=== PATIENT | female | born 1975 | race Two or more races ===

== ENCOUNTER 2024-06-29 06:09 | Emergency (ER) | payer OTHER ==
[~2024-06-29] VITALS: Ht 162.6 cm; Wt 102.1 kg
[2024-06-29] MEDS ORDERED: LAMICTAL150 M1 PO (06:45)
[2024-06-29] MEDS ORDERED: CLONAZEPAM0.5 MG PO (06:46)
[2024-06-29] MEDS ORDERED: ZOLOFT100 MG PO (06:46)
[2024-06-29] MEDS ORDERED: ABILIFY30 MG PO (06:46)
[2024-06-29] MEDS ORDERED: COZAAR25 MG PO (06:46)
[2024-06-29] MEDS ORDERED: ATORVASTATIN CA40 MG PO (06:47)
[2024-06-29] MEDS ORDERED: SYNTHROID100 MCG PO (06:47)
[2024-06-29] MEDS ORDERED: LANTUS SOL100 UNIT/1 SQ (06:48)
[2024-06-29] MEDS ORDERED: JENTADUETO 2.51 EAC2 PO (06:48)
[2024-06-29] MEDS ORDERED: FENOFIBRATE50 MG PO (06:48)
[2024-06-29] MEDS ORDERED: ACETAMINOPHEN 500 MG GEL..CAP PO ONE (08:30)
[2024-06-29] MEDS ORDERED: GUAIFENESIN 200 MG/10 ML BLIST.PACK PO ONE (08:30)
[2024-06-29] MEDS ORDERED: BENZONATATE 100 MG CAPSULE PO SCH (08:30)
[2024-06-29 10:02] LABS: HEMATOCRIT 34.5 % (36.0-45.00); HEMOGLOBIN 11.7 g/dL (12.0-15.00); MEAN CELL VOLUME 81.8 fL (80.00-100.00); MEAN CORPUSCULAR HEMOGLOBIN 27.8 pg (27.00-32.0); PLATELET COUNT 295 K/uL (150-450); RED BLOOD COUNT 4.22 M/uL (4.00-6.00); RED CELL DISTRIBUTION WIDTH 14.5 % (11.5-14.5)
[2024-06-29 11:48] VITALS: BP 122/80; O2SAT 97
[2024-06-30] MEDS ORDERED: PROTONIX40 MG PO (14:50)
[2024-06-30] MEDS ORDERED: [UNRECOGNIZED DRUG - OTHER] (14:51)
[2024-06-30] MEDS ORDERED: IPRATROPIU0.2 MG/1 M IH (18:02)
[2024-06-30] MEDS ORDERED: LEVOFLOXACIN500 MG PO (18:02)
[2024-06-30] MEDS ORDERED: ZYRTEC10 MG PO (18:02)
[2024-06-30] MEDS ORDERED: SALINE NOSE SPR45 ML NASAL (18:02)
[2024-06-30] MEDS ORDERED: XOPENEX CO1.25 MG/0. IH (18:02)
== END 2024-06-29 11:49 | disposition home or self-care (01) ==
LOC: ER 06:12
PROVIDERS: General Practice
DX: R53.81 Other malaise (principal); J06.9 Acute upper respiratory infection, unspecified; Z20.822 Contact with and (suspected) exposure to COVID-19; I10 Essential (primary) hypertension; E11.9 Type 2 diabetes mellitus without complications; Z79.4 Long term (current) use of insulin; Z91.041 Radiographic dye allergy status

== ENCOUNTER 2024-06-30 12:21 | Emergency (ER) | payer OTHER ==
[~2024-06-30] VITALS: Ht 162.6 cm; Wt 102.1 kg
[~2024-06-30 12:21] MED LIST: ABILIFY30 MG PO; ATORVASTATIN CA40 MG PO; CLONAZEPAM0.5 MG PO; COZAAR25 MG PO; FENOFIBRATE50 MG PO; JENTADUETO 2.51 EAC2 PO; LAMICTAL150 M1 PO; LANTUS SOL100 UNIT/1 SQ; SYNTHROID100 MCG PO; ZOLOFT100 MG PO
[2024-06-30 14:46] VITALS: BP 130/83; O2SAT 96
[2024-06-30] MEDS ORDERED: PROTONIX40 MG PO (14:50)
[2024-06-30] MEDS ORDERED: [UNRECOGNIZED DRUG - OTHER] (14:51)
[2024-06-30] MEDS ORDERED: IPRATROPIUM BROMIDE 0.5 MG/2.5 ML AMPUL.NEB IH SCH (15:45)
[2024-06-30] MEDS ORDERED: LEVALBUTEROL HCL 1.25 MG/3 ML SOLUTION IH SCH (15:45)
[2024-06-30] MEDS ORDERED: INSULIN REGULAR, HUMAN 1,000 UNIT/10 ML UNITS SUBCUTANEO ONE (15:45)
[2024-06-30] MEDS ORDERED: CETIRIZINE HCL 5 MG/5 ML ML PO ONE (15:45)
[2024-06-30 16:14] LABS: HEMATOCRIT 34.4 % (36.0-45.00); HEMOGLOBIN 11.4 g/dL (12.0-15.00); MEAN CELL VOLUME 82.1 fL (80.00-100.00); MEAN CORPUSCULAR HEMOGLOBIN 27.3 pg (27.00-32.0); MEAN CORPUSCULAR HGB CONC 33.3 g/dl (32.0-36.0); PLATELET COUNT 307 K/uL (150-450); RED BLOOD COUNT 4.19 M/uL (4.00-6.00); RED CELL DISTRIBUTION WIDTH 14.4 % (11.5-14.5)
[2024-06-30] MEDS ORDERED: LEVOFLOXACIN500 MG PO (18:02)
[2024-06-30] MEDS ORDERED: ZYRTEC10 MG PO (18:02)
[2024-06-30] MEDS ORDERED: SALINE NOSE SPR45 ML NASAL (18:02)
[2024-06-30] MEDS ORDERED: IPRATROPIU0.2 MG/1 M IH (18:02)
[2024-06-30] MEDS ORDERED: XOPENEX CO1.25 MG/0. IH (18:02)
[2024-06-30 19:03] LABS: ABG PH 7.438 (7.35-7.45); ABG PO2 95.9 mmHg (80-100); ABG pCO2 39.3 mmHg (35-45)
[2024-06-30 19:04] LABS: BASE EXCESS 1.8 mmol/l; SaO2 77.3 %; Tco2 27.2 mmol/l
[2024-06-30 19:06] LABS: allen test SATISFACTORY; o2 21 %; puncture site RADIAL RIGHT
== END 2024-06-30 18:35 ==
LOC: ER 12:23
PROVIDERS: General Practice
DX: R53.81 Other malaise (principal); J32.9 Chronic sinusitis, unspecified; J06.9 Acute upper respiratory infection, unspecified; I10 Essential (primary) hypertension; E03.8 Other specified hypothyroidism; E11.9 Type 2 diabetes mellitus without complications; Z79.4 Long term (current) use of insulin; Z91.041 Radiographic dye allergy status